=== PATIENT | female | born 2000 | race Caucasian/White ===

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

== ENCOUNTER 2019-11-19 06:22 | Inpatient (IN) | payer BC, OTHER ==
[2019-11-19] MEDS ORDERED: OXYTOCIN 10 UNIT/ML 1 ML VIAL IM PRN (06:56)
[2019-11-19] MEDS ORDERED: CARBOPROST TROMETHAMINE 250 MCG/ML 1 ML AMP IM PRN (06:56)
[2019-11-19] MEDS ORDERED: LIDOCAINE 0.5% (PF) 5 MG/ML (50 ML SDV) SQ PRN (06:56)
[2019-11-19] MEDS ORDERED: TERBUTALINE 1 MG/ML VIAL SQ PRN (06:56)
[2019-11-19] MEDS ORDERED: METHYLERGONOVINE 0.2 MG/ML 1 ML AMP IM PRN (06:56)
[2019-11-19] MEDS ORDERED: OXYTOCIN 30 UNITS/500 ML NS 30 UNIT in SALINE 1 500ML.BAG IV SCH (07:00)
[2019-11-19] MEDS: LACTATED RINGERS 1,000 ML IV SCH ×3 (07:05→13:47)
[2019-11-19 08:04] LABS: Basophils % (A) 0 %; Eosinophils # (A) 0.1 k/uL (0-0.7); Eosinophils % (A) 1 %; HCT 33.1 % (34.0-46.0); HGB 10.8 gm/dL (11.4-16.0); Hypochromasia Slight; Lymphocytes # (A) 1.8 k/uL (1.0-4.8); Lymphocytes % (A) 25 %; MCH 24.1 pg (25.0-35.0); MCHC 32.6 g/dL (31.0-37.0); MCV 73.9 fL (80.0-100.0); Mean Platelet Volume 12.4; Microcytosis Slight; Monocytes # (A) 0.4 k/uL (0-1.0); Monocytes % (A) 6 %; Neutrophils # (A) 4.7 k/uL (1.3-7.7); Neutrophils % (A) 66 %; Platelet Count 179 k/uL (150-450); Poikilocytosis Slight; RBC 4.48 m/uL (3.80-5.40); RDW 14.4 % (11.5-15.5); WBC 7.1 k/uL (3.8-10.6)
[2019-11-19 08:33] LABS: Large Platelets Present
[2019-11-19 08:34] LABS: Poikilocytosis (M) Present
[2019-11-19] MEDS ORDERED: BUTORPHANOL 1 MG/ML 1 ML VIAL IV PRN (08:39)
--- NOTE | 2019-11-19 08:44 | P.HPOB ---
History of Present Illness H&P Date: 11/19/19 Chief Complaint: 39+ weeks, elective induction The patient is a 19-year-old 2 para 1001 admitted at 39-3/7 weeks as established by an 8 week ultrasound. 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 Her cervix was felt to be favorable enough in the office. Her has been essentially uncomplicated though she was diagnosed with a circumvallate placenta and has had reassuring testing on a weekly basis since 32 weeks. Group B strep status is negative. Obstetrical history: 2 para 1001 with 1 term vaginal delivery without complications. Current statistics are listed in history of present illness. EDC of 11/23/2019 was established by an 8 week ultrasound. Laboratory workup demonstrates a blood type of O- with a negative antibody screen. Rubella status is immune. The remainder of the laboratory workup was within normal limits. One hour Glucola was within normal limits and group B strep status is negative. Gynecologic history: Unremarkable with no history of any infections to include STDs. Review of Systems Review of systems is confined to history of present illness. Past Medical History Past Medical History: No Reported History History of Any Multi-Drug Resistant Organisms: None Reported Past Surgical History: No Surgical Hx Reported Additional Past Surgical History / Comment(s): third molar removal Past Anesthesia/Blood Transfusion Reactions: No Reported Reaction Past Psychological History: No Psychological Hx Reported Smoking Status: Never smoker Past Alcohol Use History: None Reported Past Drug Use History: None Reported - Past Family History Father Family Medical History: Hypertension Medications and Allergies Home Medications Medication Instructions Recorded Confirmed Type Omeprazole [PriLOSEC] 40 mg PO DAILY 11/19/19 11/19/19 History Allergies Allergy/AdvReac Type Severity Reaction Status Date / Time adhesive tape Allergy Rash/Hives Verified 11/19/19 06:55 Exam Vital Signs Temp Pulse Resp BP Pulse Ox 11/19/19 06:54 98.1 F 85 16 127/80 98 Intake and Output 11/18/19 11/19/19 11/19/19 22:59 06:59 14:59 Other: Weight 78.925 kg In general, this is a well-developed, well-nourished white female in no acute distress. Her heart has a regular rhythm and rate without murmur. Her lungs are clear to auscultation bilaterally in all abernathy. Her abdomen is gravid, nondistended, has normal active bowel sounds, soft, nontender, and without any palpable masses aside from uterine fundus. Her extremities are without any c yanosis, clubbing, or significant edema and are nontender to palpation bilaterally. Digital cervical examination on straights discharged to be approximately 1-1/2 7 m dilated, 50% effaced, the vertex in presentation at -3 station at this time. Artificial rupture of membranes was felt to be unsafe at this station and will be delayed for a short time. Results Result Diagrams: 11/19/19 07:09 Abnormal Lab Results - Last 24 Hours (Table) 11/19/19 Range/Units 07:09 Hgb 10.8 L (11.4-16.0) gm/dL Hct 33.1 L (34.0-46.0) % MCV 73.9 L (80.0-100.0) fL MCH 24.1 L (25.0-35.0) pg Assessment and Plan (1) 39 weeks gestation of Current Visit: Yes Status: Acute Code(s): Z3A.39 - 39 WEEKS GESTATION OF SNOMED Code(s): 49646691 Plan: The patient has been admitted for elective induction of labor. She understands that there is a slightly increased risk for delivery under these circumstances. Pitocin augmentation has been started and she will have artificial rupture of membranes carried out this morning. She is a good candidate for either IV or epidural analgesia, whichever she may choose. Continue with close maternal and surveillance along with expectant management.
[2019-11-19] MEDS ORDERED: ePHEDrine SULFATE/0.9% NACL/PF 50 MG/5 ML SYRINGE IV ONE (11:57)
[2019-11-19] MEDS ORDERED: fentaNYL (PF) 50 MCG/ML 5 ML AMP ONE (11:57)
[2019-11-19] MEDS ORDERED: SODIUM CHLORIDE 0.9% 100 ML BAG ONE (11:57)
[2019-11-19] MEDS ORDERED: ROPIVACAINE 5MG/ML 20ML VIAL ONE (11:57)
[2019-11-19] MEDS ORDERED: HYDROCORTISONE 2.5% RECTAL CREAM 30 GM TUBE RECTAL PRN (19:44)
[2019-11-19] MEDS ORDERED: diphenhydrAMINE 50 MG CAP PO PRN (19:44)
[2019-11-19] MEDS ORDERED: ACETAMINOPHEN TAB 325 MG TAB PO PRN (19:44)
[2019-11-19] MEDS ORDERED: diphenhydrAMINE 50 MG/ML 1 ML VIAL IVP PRN ×2 (19:44)
[2019-11-19] MEDS ORDERED: HYDROcodone/APAP 7.5-325MG 1 EACH TAB PO PRN (19:44)
[2019-11-19] MEDS ORDERED: HYDROcodone/APAP 5-325MG 1 EACH TAB PO PRN (19:44)
[2019-11-19] MEDS ORDERED: WITCH HAZEL 1 EACH MED..PAD TOPICAL PRN (19:44)
[2019-11-19] MEDS ORDERED: ZOLPIDEM 5 MG TAB PO PRN (19:44)
[2019-11-19] MEDS ORDERED: diphenhydrAMINE 25 MG CAP PO PRN (19:44)
[2019-11-19] MEDS ORDERED: SIMETHICONE 80 MG CHEWABLE PO PRN (19:44)
[2019-11-19] MEDS ORDERED: LANOLIN CREAM 5 GM TUBE TOPICAL PRN (19:44)
[2019-11-19] MEDS ORDERED: BENZOCAINE/MENTHOL SPRAY 1 GM/SPRAY AEROSOL TOPICAL PRN (19:44)
[2019-11-19] MEDS ORDERED: OXYTOCIN 20 UNITS/1000 ML NS 1,000 ML IV SCH (19:45)
--- NOTE | 2019-11-19 19:48 | P.PROBDLV ---
Vaginal Delivery Note - . Vaginal Delivery Note: The patient is a 19-year-old 2 para 1001 admitted at 39-3/7 weeks by good dating parameters. She is admitted for elective induction of labor secondary to social circumstances. She is admitted with all signs reassuring. Her has been uncomplicated though she was known to have a circumvallate placenta and had reassuring testing weekly after 32 weeks. She additionally was Rh- and received RhoGAM at 28 weeks. Group B strep status is negative. On labor and delivery, Pitocin augmentation was started and she underwent artificial rupture of membranes for clear fluid. She made progress to approximately 3-4 synovators at which time she had an epidural catheter placed for analgesia. She then made steady progress to the active phase of labor and progressed ultimately to complete where after she pushed over the course of approximately 3-4 contractions to a normal spontaneous vaginal delivery of a viable 7 lbs. 2 oz. baby boy with Apgars of 9 at 1 minute and 9 at 5 minutes delivered in the right occiput anterior position. There was a loose nuchal cord 1 which was reduced following delivery of the infant. The placenta was delivered spontaneously, intact, and grossly normal although the circumvallate ring was noted. There was a grossly normal, centrally inserted three-vessel cord. There was a small second-degree midline perineal laceration which was repaired with a [id number] stitch of 3-0 chromic catgut and one stitch to reapproximate the skin. Estimated blood loss for the entire case was approximately 150 mL. There were no complications. All sponge, instrument, and needle counts were correct. Both mother and are resting comfortably in recovery.
[2019-11-19] MEDS: IBUPROFEN 600 MG TAB PO PRN (20:42)
[2019-11-20] MEDS ORDERED: Rhogam IMMUNE GLOBULIN 1,500 UNIT/1 ML IM ONE (00:28)
[2019-11-20] MEDS: SENNOSIDES-DOCUSATE SODIUM 1 EACH TAB PO SCH ×3 (00:43→20:15)
[2019-11-20] MEDS: IBUPROFEN 600 MG TAB PO PRN ×2 (08:19→17:11)
[2019-11-20] MEDS ORDERED: PANTOPRAZOLE 40 MG TABLET PO SCH (08:30)
--- NOTE | 2019-11-20 11:12 | P.DS ---
Providers Date of admission: 11/19/19 06:22 Expected date of discharge: 11/20/19 Attending physician: Brenden Rene Primary care physician: Stated None - Discharge Diagnosis(es) (1) 39 weeks gestation of Current Visit: Yes Status: Acute (2) Normal spontaneous vaginal delivery Current Visit: Yes Status: Acute Hospital Course: The patient is a 19-year-old 2 para 1001 admitted at 39-3/7 weeks by good dating parameters. She is admitted for an elective induction secondary to social circumstances as she is currently on spring break and is to resume school next week making delivery this week significantly more convenient. Her has been uncomplicated aside from the diagnosis of a circumvallate placenta for which she had reassuring testing weekly after 32 weeks. Group B strep status is negative. On labor and delivery, she had Pitocin augmentation started and was ultimately followed by artificial rupture of membranes for clear fluid. She had an epidural catheter placed for analgesia and made steady progress through the active phase to complete. She pushed over the course of 3 or 4 contractions to a normal spontaneous vaginal delivery of a viable 7 lbs. 2 oz. baby boy with Apgars of 9 at 1 minute and 9 at 5 minutes. Her course was unremarkable with vital signs remained stable and her temperature was afebrile throughout. She was deemed stable for discharge on day #1 and was discharged home to follow-up in the office in 6 weeks' time routinely. Discharge instructions included calling for any significantly increased bleeding or foul-smelling lochia, significantly increased fever abdominal pain, perineal complaints, breast complaints, or anything else that concerned her. She was additionally instructed to have nothing in the vagina for at least 6 weeks time to include intercourse. She understood her in structions and agrees to follow up as noted above. Discharge medications included continued vitamins as she has opted to breast-feed. She was otherwise she is [id number]-[id number] analgesic pain medications but was additionally provided with a prescription for Tylenol 3, 1-2 by mouth every 6 hours when necessary pain, #12 dispensed with no refills. Maternal blood type is O- and cord blood was sent for evaluation for the necessity of RhoGAM prior to discharge. Rubella status is immune. Procedures: #1. Pitocin induction #2. Artificial rupture of membranes #3. Epidural analgesia #4. Normal spontaneous vaginal delivery #5. Repair of perineal laceration Patient Condition at Discharge: Good Plan - Discharge Summary New Discharge Prescriptions: No Action Omeprazole [PriLOSEC] 40 mg PO DAILY Discharge Medication List Omeprazole [PriLOSEC] 40 mg PO DAILY 11/19/19 [History] Follow up Appointment(s)/Referral(s): Brenden Rene MD [STAFF PHYSICIAN] - 6 Weeks Discharge Disposition: HOME SELF-CARE
[2019-11-20 22:14] VITALS: BP 112/78; PULSE 76; RESP 12; TEMP 97.9
== END 2019-11-20 20:20 | disposition home or self-care (01) | DRG 807 ==
LOC: 4FBP 06:22
PROVIDERS: ADMIT Obstetrics & Gynecology; ATTEND Obstetrics & Gynecology
PROC: 3E033VJ Introduction of Other Hormone into Peripheral Vein, Percutaneous Approach (ICD-10-PCS; principal; 2019-11-19)
PROC: 0KQM0ZZ Repair Perineum Muscle, Open Approach (ICD-10-PCS; principal; 2019-11-19)
PROC: 10E0XZZ Delivery of Products of Conception, External Approach (ICD-10-PCS; principal; 2019-11-19)
PROC: 10907ZC Drainage of Amniotic Fluid, Therapeutic from Products of Conception, Via Natural or Artificial Opening (ICD-10-PCS; principal; 2019-11-19)
DX: O69.81X0 Labor and delivery complicated by cord around neck, without compression, not applicable or unspecified (principal); Z37.0 Single live birth; O70.1 Second degree perineal laceration during delivery; Z3A.39 39 weeks gestation of pregnancy; Z82.49 Family history of ischemic heart disease and other diseases of the circulatory system
CPT/HCPCS: 85025; 85461; 86850; 86900; 86901; 88307

== ENCOUNTER → 2021-12-18 | Outpatient (CLI) | payer BC | END | disposition home or self-care (01) | LOC: LABWHC1 10:11 | PROVIDERS: ATTEND Obstetrics & Gynecology | DX: Z36.9 Encounter for antenatal screening, unspecified (principal) | CPT/HCPCS: 36415; 82950; 86850 ==

== ENCOUNTER 2021-12-20 22:35 | Outpatient (CLI) | payer BC ==
[2021-12-21 00:57] VITALS: BP 121/60; PULSE 76; RESP 16; TEMP 98
--- NOTE | 2022-01-03 18:05 | P.MSEPDOC ---
Presenting Problems - Arrival Data Date of Arrival on Unit: 12/20/21 Time of Arrival on Unit: 22:35 Mode of Transport: Ambulatory - Complaint OB-Reason for Admission/Chief Complaint: Pain Comment: presents to [facility] after going to "[facility] ER" for rt sided abd pain. ponts rt groin up to hip area. is constant pain. sharp. abd remains. soft. pain worse with any walking. pain has been going on about 24 hours Medical History - Information : 3 Para: 2 Term: 2 : 0 Abortions: Spontaneous or Elective: 0 Number of Living Children: 2 - Gestational Age Gestational Age by DANIKA (wks/days): 30 Weeks and 4 Days - History Comment: states failed first glucose test. second not scheduled yet Review of Systems - Review of Systems Constitutional: No problems Breast: No problems ENT: No problems Cardiovascular: No problems Respiratory: No problems Gastrointestinal: No problems Genitourinary: No problems Musculoskeletal: No problems Neurological: No problems Skin: No problems Vital Signs - Temperature Temperature: 98.0 F Temperature Source: Oral - Pulse Right Pulse Rate: 76 Pulse Assessment Method: Automatic Cuff - Respirations Respiratory Rate: 16 Oxygen Delivery Method: Room Air O2 Sat by Pulse Oximetry: 97 - Blood Pressure Right Arm Blood Pressure: 121/60 Blood Pressure Mean: 80 Blood Pressure Source: Automatic Cuff Medical Screen Scoring - Uterine Contractions Frequency From (mins): 0 Frequency To (mins): 0 Duration From (seconds): 0 Duration To (seconds): 0 - Assessment - Baby A Baseline FHR: 120 Heart Rate - NICHD Category: Category I (Normal) NST: Reactive Physician Notification - Physician Notified Physician Notified Date: 12/20/21 Physician Notified Time: 23:15 Physician: Dr Bergman New Order Received: Yes - Notification Comment Comment: Discussed pts presentation, Pain, vitals, complaints, reactive NST with Dr Bergman. Order for discharge received with pt to remain off work tomorrowe for rest and to call Dr Rene tomorrow for an appt next week. Advised to try using a pregnancysupport belt, over the counter tylenol, warm baths and compresses alternating with ice packs for suspected rt sided round lig pain. Pt advised of all instructions. denies any questions. Maternal Triage Index - Maternal Triage Index Presenting for scheduled procedure w/no complaint: No - Stat/Priority 1 Stat Priority 1: No - Urgent/Priority 2 Urgent Priority 2: No - Prompt/Priority 3 Prompt Priority 3: No - Non-Urgent/Priority 4 Non-Urgent Priority 4: Yes Criteria Met for Priority 4: rt groin pain radiates to hip Disposition - Disposition OB Disposition: Discharge to home Discharge Date: 12/20/21 Discharge Time: 23:20 I agree with the RN Medical Screening Exam: Yes Case reviewed; plan agreed upon as documented in EMR&OBIX.: Yes Diagnosis: RELATED CONDITIONS, UNSPECIFIED, THIRD TRIMESTER
== END 2021-12-20 23:15 | disposition home or self-care (01) ==
LOC: FBPOP 22:35
PROVIDERS: ATTEND Obstetrics & Gynecology Obstetrics
DX: O26.893 Other specified pregnancy related conditions, third trimester (principal); R10.9 Unspecified abdominal pain; Z3A.30 30 weeks gestation of pregnancy; Z91.048 Other nonmedicinal substance allergy status
CPT/HCPCS: 59025; 99213

== ENCOUNTER 2022-02-23 06:15 | Inpatient (IN) | payer BC ==
[2022-02-23] MEDS ORDERED: CARBOPROST TROMETHAMINE 250 MCG/ML 1 ML AMP IM PRN (07:24)
[2022-02-23] MEDS ORDERED: TERBUTALINE 1 MG/ML VIAL SQ PRN (07:24)
[2022-02-23] MEDS ORDERED: OXYTOCIN 10 UNIT/ML 1 ML VIAL IM PRN (07:24)
[2022-02-23] MEDS ORDERED: LIDOCAINE 0.5% (PF) 5 MG/ML (50 ML SDV) SQ PRN (07:24)
[2022-02-23] MEDS ORDERED: PENICILLIN G POTASSIUM 5,000,000 UNIT in DEXTROSE 5% IN WATER 100 ML IVPB STA ×2 (07:24)
[2022-02-23] MEDS ORDERED: METHYLERGONOVINE 0.2 MG/ML 1 ML AMP IM PRN (07:24)
[2022-02-23] MEDS ORDERED: OXYTOCIN 30 UNITS/500 ML NS 30 UNIT in SALINE 1 500ML.BAG IV SCH ×2 (07:30→14:30)
[2022-02-23] MEDS: LACTATED RINGERS 1,000 ML IV SCH ×2 (07:35→10:58)
[2022-02-23 08:02] LABS: Anisocytosis Slight; Basophils % (A) 1 %; Eosinophils # (A) 0.2 k/uL (0-0.7); Eosinophils % (A) 3 %; HGB 10.6 gm/dL (11.4-16.0); Hypochromasia Moderate; Lymphocytes # (A) 2.1 k/uL (1.0-4.8); Lymphocytes % (A) 24 %; MCHC 32.1 g/dL (31.0-37.0); MCV 74.8 fL (80.0-100.0); Mean Platelet Volume 12.8; Microcytosis Slight; Monocytes # (A) 0.5 k/uL (0-1.0); Monocytes % (A) 5 %; Neutrophils # (A) 5.8 k/uL (1.3-7.7); Neutrophils % (A) 66 %; Platelet Count 211 k/uL (150-450); Poikilocytosis Slight; RBC 4.41 m/uL (3.80-5.40); RDW 16.1 % (11.5-15.5); WBC 8.8 k/uL (3.8-10.6)
[2022-02-23 08:17] LABS: Glucose,Whole Blood 82 mg/dL (70-110)
[2022-02-23 08:41] LABS: Large Platelets Present
[2022-02-23] MEDS ORDERED: BUTORPHANOL 1 MG/ML 1 ML VIAL IV PRN (09:02)
--- NOTE | 2022-02-23 09:08 | P.HPOB ---
History of Present Illness H&P Date: 02/23/22 Chief Complaint: 39-5/7 weeks, elective induction The patient is a 22-year-old 3 para 2001 admitted at 39-5/7 weeks as established by seven-week ultrasound. She is admitted for elective induction of labor with a very favorable cervix and all signs reassuring, category 1 heart rate tracing. Her has been complicated by gestational diabetes which was presumptive in nature as she declined a three-hour glucose tolerance test. A sugars were normal throughout with diet alone and testing has been reassuring weekly basis and 32 weeks. She otherwise is known to be Rh- and received RhoGAM at 28 weeks. Group B strep status is positive. Obstetrical history: 3 para 2001 with 2 term vaginal deliveries without complications. Current statistics are listed in history present illness. EDC of 02/25/2022 was established by seven-week ultrasound. Laboratory workup demonstrates a blood type of O- with a negative antibody screen. Rubella status is immune. The remainder of the laboratory workup was within normal limits. One hour Glucola was somewhat elevated and the patient declined three-hour glucose tolerance test in favor of being treated is a diabetic. Group B strep status is positive. Leather Splitter history: Uncomplicated with no history of infections to include STDs. Review of Systems Review of systems is confined to history of present illness. Past Medical History Past Medical History: Asthma, GERD/Reflux History of Any Multi-Drug Resistant Organisms: None Reported Past Surgical History: No Surgical Hx Reported Additional Past Surgical History / Comment(s): third molar removal Past Anesthesia/Blood Transfusion Reactions: No Reported Reaction Past Psychological History: Anxiety, Depression Smoking Status: Never smoker Past Alcohol Use History: None Reported Past Drug Use History: None Reported - Past Family History Father Family Medical History: Hypertension Medications and Allergies Home Medications Medication Instructions Recorded Confirmed Type Famotidine [Pepcid] 20 mg PO BID 02/23/22 02/23/22 History Omeprazole 40 mg PO DAILY 02/23/22 02/23/22 History Allergies Allergy/AdvReac Type Severity Reaction Status Date / Time adhesive tape Allergy Rash/Hives Verified 02/23/22 07:21 Exam Vital Signs Temp Pulse Resp BP Pulse Ox 02/23/22 07:21 98.1 F 74 18 123/73 98 Intake and Output 02/22/22 02/23/22 02/23/22 22:59 06:59 14:59 Other: Weight 87.997 kg In general, this is a well-developed, mildly obese white female in no acute distress. Her heart has a regular rhythm and rate without murmur. Her lungs are clear to auscultation bilaterally in all abernathy. Her abdomen is gravid, nondistended, has normal active bowel sounds, soft, nontender, and without any palpable masses aside from uterine fundus. Her extremities are without any cyanosis, clubbing, or significant edema and are nontender to palpation bilaterally. Digital cervical examination demonstrates her cervix to be 3-4 cm dilated, 60% effaced, the vertex in presentation at -2-3 station. Artificial rupture of membranes is carried out demonstrating clear fluid. Results Result Diagrams: 02/23/22 07:35 Abnormal Lab Results - Last 24 Hours (Table) 02/23/22 Range/Units 07:35 Hgb 10.6 L (11.4-16.0) gm/dL Hct 33.0 L (34.0-46.0) % MCV 74.8 L (80.0-100.0) fL MCH 24.0 L (25.0-35.0) pg RDW 16.1 H (11.5-15.5) % Assessment and Plan (1) Group B streptococcal infection in Current Visit: Yes Status: Acute Code(s): O98.819 - OTH MATERNAL INFEC/PARASTC DISEASES COMP PREG, UNSP TRI; B95.1 - STREPTOCOCCUS, GROUP B, CAUSING DISEASES [facility] Code(s): 417134141 (2) 39 weeks gestation of Current Visit: Yes Status: Acute Code(s): Z3A.39 - 39 WEEKS GESTATION OF SNOMED Code(s): 51367364 Plan: The patient is admitted for elective induction of labor. Pitocin augmentation h as been started and she has had her first dose of antibiotics for group B strep prophylaxis. Artificial rupture of membranes has been carried out. She will have close maternal and surveillance and expectant management will be practiced. She is a good candidate for either IV or epidural analgesia, whichever she may choose.
[2022-02-23 10:44] LABS: Glucose,Whole Blood 71 mg/dL (70-110)
[2022-02-23] MEDS ORDERED: SODIUM CHLORIDE 0.9% 100 ML BAG ONE (10:47)
[2022-02-23] MEDS ORDERED: ROPIVACAINE 5MG/ML 20ML VIAL ONE (10:47)
[2022-02-23] MEDS ORDERED: fentaNYL (PF) 50 MCG/ML 5 ML AMP ONE (10:47)
[2022-02-23] MEDS: PENICILLIN G POTASSIUM 2,500,000 UNIT in DEXTROSE 5% IN WATER 100 ML IVPB SCH ×4 (11:49→20:47)
[2022-02-23] MEDS ORDERED: ZOLPIDEM 5 MG TAB PO PRN (14:19)
[2022-02-23] MEDS ORDERED: HYDROcodone/APAP 7.5-325MG 1 EACH TAB PO PRN (14:19)
[2022-02-23] MEDS ORDERED: HYDROcodone/APAP 5-325MG 1 EACH TAB PO PRN (14:19)
[2022-02-23] MEDS ORDERED: SIMETHICONE 80 MG CHEWABLE PO PRN (14:19)
[2022-02-23] MEDS ORDERED: diphenhydrAMINE 25 MG CAP PO PRN (14:19)
[2022-02-23] MEDS ORDERED: diphenhydrAMINE 50 MG CAP PO PRN (14:19)
[2022-02-23] MEDS ORDERED: diphenhydrAMINE 50 MG/ML 1 ML VIAL IVP PRN ×2 (14:19)
[2022-02-23] MEDS ORDERED: HYDROCORTISONE 2.5% RECTAL CREAM 30 GM TUBE RECTAL PRN (14:19)
[2022-02-23] MEDS ORDERED: BENZOCAINE/MENTHOL SPRAY 1 GM/SPRAY AEROSOL TOPICAL PRN (14:19)
[2022-02-23] MEDS ORDERED: LANOLIN CREAM 5 GM TUBE TOPICAL PRN (14:19)
--- NOTE | 2022-02-23 14:23 | P.PROBDLV ---
Vaginal Delivery Note - . Vaginal Delivery Note: The patient is a 22-year-old 3 para 2001 admitted at 39-5/7 weeks by good dating parameters perches admitted for an elective induction of labor with a category 1 heart rate tracing, all signs reassuring, and a favorable cervix. Her has been complicated only by presumptive gestational diabetes as she declined a three-hour glucose tolerance test after failing the 1 hour. testing was reassuring and blood sugars were normal throughout. She also is known to be Rh- and received RhoGAM at 28 weeks. Group B strep status is positive. On labor and delivery, she had antibiotic prophylaxis started as well as Pitocin augmentation. She underwent artificial rupture of membranes for clear fluid she made progress through the latent phase of labor at which time she had an epidural catheter placed for analgesia. She then progressed fairly quickly through the active phase of labor to complete and thereafter pushed over the course of 1 contraction to a normal spontaneous vaginal delivery of a viable 8 lbs. 13 oz. baby boy with Apgars of 9 at 1 minute and 10 at 5 minutes delivered in the right occiput anterior position. There was a loose nuchal cord 1 which was reduced prior to delivering the infant. The placenta was delivered spontaneously, intact, and grossly normal with a grossly normal three-vessel cord inserted approximate 4 cm from the margin of the placental disc. There were no lacerations of the perineum, vagina, or cervix. Assessment a blood loss for the case is approximately 100 mL. There were no complications. Both mother and are resting comfortably in recovery.
[2022-02-23] MEDS: IBUPROFEN 600 MG TAB PO PRN (14:45)
[2022-02-23] MEDS ORDERED: Rhogam IMMUNE GLOBULIN 1,500 UNIT/1 ML IM ONE (18:50)
[2022-02-23] MEDS: ACETAMINOPHEN TAB 325 MG TAB PO PRN (20:04)
[2022-02-23] MEDS: SENNOSIDES-DOCUSATE SODIUM 1 EACH TAB PO SCH (20:05)
[2022-02-24] MEDS: IBUPROFEN 600 MG TAB PO PRN ×2 (04:57→11:49)
[2022-02-24 07:58] LABS: Anisocytosis Slight; Basophils % (A) 0 %; Eosinophils # (A) 0.3 k/uL (0-0.7); Eosinophils % (A) 4 %; HCT 30.9 % (34.0-46.0); HGB 9.8 gm/dL (11.4-16.0); Hypochromasia Moderate; Lymphocytes # (A) 1.8 k/uL (1.0-4.8); Lymphocytes % (A) 20 %; MCH 23.7 pg (25.0-35.0); MCHC 31.7 g/dL (31.0-37.0); MCV 74.6 fL (80.0-100.0); Mean Platelet Volume 13.3; Microcytosis Slight; Monocytes # (A) 0.5 k/uL (0-1.0); Monocytes % (A) 5 %; Neutrophils # (A) 5.9 k/uL (1.3-7.7); Neutrophils % (A) 67 %; Platelet Count 152 k/uL (150-450); Poikilocytosis Slight; RBC 4.15 m/uL (3.80-5.40); RDW 16.3 % (11.5-15.5); WBC 8.8 k/uL (3.8-10.6)
[2022-02-24] MEDS: SENNOSIDES-DOCUSATE SODIUM 1 EACH TAB PO SCH (08:46)
[2022-02-24] MEDS: ACETAMINOPHEN TAB 325 MG TAB PO PRN (08:46)
[2022-02-24 09:41] LABS: Large Platelets Present
--- NOTE | 2022-02-24 11:27 | P.DS ---
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 She is admitted for elective induction with all signs reassuring. Her pregnancies, located by presumptive gestational diabetes as she declined a three-hour glucose tolerance test. blood sugars were normal and weekly nonstress testing was normal since 32 weeks. She is also Rh- and received RhoGAM at 28 weeks. Group B strep status was positive. On labor and delivery, she had antibiotic prophylaxis started as well as Pitocin augmentation. She underwent artificial rupture of membranes. She made progress to the active phase of labor which time an epidural catheter was placed patient progressed relatively quickly through the active phase to complete and pushed over the course of 1 contraction to a normal spontaneous vaginal delivery of a viable 8 lbs. 13 oz. baby boy with Apgars of 9 at 1 minute and 10 at 5 minutes. Her course was unremarkable vital signs being stable and her temperature was afebrile throughout. She was deemed stable for discharge on day #1 and was discharged home to follow-up in the office in 6 weeks' time routinely. Discharge instructions included calling for any significantly increased bleeding or foul-smelling lochia, significantly increased fever abdominal pain, perineal complaints, breast complaints, or anything else that concerned her. She is additionally instructed to have nothing in the vagina for at least 6 weeks time to include intercourse. She understood her instructions and agrees to follow up as noted above. Discharge medications included continue vitamins and cqza-nki-uumjsrr analgesic pain medications. Maternal blood type is O- and cord blood was sent for evaluation for the necessity of RhoGAM prior to discharge. Rubella status is immune. Procedures: #1. Antibiotic prophylaxis #2. Pitocin induction of 3. Artificial rupture of membranes #4. Epidural analgesia #5. Normal spontaneous vaginal delivery Patient Condition at Discharge: Stable Plan - Discharge Summary New Discharge Prescriptions: No Action Famotidine [Pepcid] 20 mg PO BID Omeprazole 40 mg PO DAILY Discharge Medication List Famotidine [Pepcid] 20 mg PO BID 02/23/22 [History] Omeprazole 40 mg PO DAILY 02/23/22 [History] Follow up Appointment(s)/Referral(s): Brenden Rene MD [STAFF PHYSICIAN] - 6 Weeks Discharge Disposition: HOME SELF-CARE
[2022-02-24 13:32] VITALS: BP 99/60; PULSE 85; RESP 17; TEMP 98.3
== END 2022-02-24 15:15 | disposition home or self-care (01) | DRG 807 ==
LOC: 4FBP 06:29
PROVIDERS: ADMIT Obstetrics & Gynecology; ATTEND Obstetrics & Gynecology
PROC: 10E0XZZ Delivery of Products of Conception, External Approach (ICD-10-PCS; principal; 2022-02-23)
PROC: 10907ZC Drainage of Amniotic Fluid, Therapeutic from Products of Conception, Via Natural or Artificial Opening (ICD-10-PCS; 2022-02-23)
PROC: 3E033VJ Introduction of Other Hormone into Peripheral Vein, Percutaneous Approach (ICD-10-PCS; 2022-02-23)
DX: O24.420 Gestational diabetes mellitus in childbirth, diet controlled (principal); O99.824 Streptococcus B carrier state complicating childbirth; O69.81X0 Labor and delivery complicated by cord around neck, without compression, not applicable or unspecified; O99.62 Diseases of the digestive system complicating childbirth; F41.9 Anxiety disorder, unspecified; J45.909 Unspecified asthma, uncomplicated; F32.A Depression, unspecified; K21.9 Gastro-esophageal reflux disease without esophagitis; Z37.0 Single live birth; O99.344 Other mental disorders complicating childbirth; O26.893 Other specified pregnancy related conditions, third trimester; O99.52 Diseases of the respiratory system complicating childbirth; Z3A.39 39 weeks gestation of pregnancy; Z82.49 Family history of ischemic heart disease and other diseases of the circulatory system; Z67.41 Type O blood, Rh negative; Z91.048 Other nonmedicinal substance allergy status
CPT/HCPCS: 85025; 85461; 86850; 86900; 86901

== ENCOUNTER 2023-03-22 09:15 | Emergency (ER) | payer BC ==
[2023-03-22 09:18] VITALS: BP 133/76; PULSE 57; RESP 18; TEMP 98.2
[2023-03-22] MEDS ORDERED: FAMOTIDINE 20 MG TAB PO STA (09:24)
[2023-03-22] MEDS ORDERED: predniSONE 50 MG TAB PO STA (09:24)
--- NOTE | 2023-03-22 09:29 | ED ---
General Adult HPI - General Chief complaint: Skin/Abscess/Foreign Body Stated complaint: rash Time Seen by Provider: 03/22/23 09:16 Source: patient, RN notes reviewed, old records reviewed Mode of arrival: ambulatory - History of Present Illness Initial comments: 23-year-old female presenting with rash which she noticed upon waking this morning at 831 hour prior to arrival. Rash is predominantly on her bilateral upper extremities. Patient had taken 50 mg of Benadryl prior to arrival. No vomiting. No known exposure. No new foods. Patient is otherwise healthy. - Related Data Home Medications Medication Instructions Recorded Confirmed Famotidine [Pepcid] 20 mg PO BID 02/23/22 02/23/22 Omeprazole 40 mg PO DAILY 02/23/22 02/23/22 Previous Rx's Medication Instructions Recorded Famotidine [Pepcid] 20 mg PO DAILY #7 tablet 03/22/23 diphenhydrAMINE [Benadryl] 25 mg PO TID PRN #21 capsule 03/22/23 methylPREDNISolone Dose Pack 4 mg PO DIRECTED #21 packet 03/22/23 [Medrol Dose Pack] Allergies Allergy/AdvReac Type Severity Reaction Status Date / Time adhesive tape Allergy Rash/Hives Verified 03/22/23 09:18 Review of Systems ROS Statement: Those systems with pertinent positive or pertinent negative responses have been documented in the HPI. ROS Other: All systems not noted in ROS Statement are negative. Past Medical History Past Medical History: Asthma, GERD/Reflux History of Any Multi-Drug Resistant Organisms: None Reported Past Surgical History: No Surgical Hx Reported Additional Past Surgical History / Comment(s): third molar removal Past Anesthesia/Blood Transfusion Reactions: No Reported Reaction Past Psychological History: Anxiety, Depression Smoking Status: Never smoker Past Alcohol Use History: None Reported Past Drug Use History: None Reported - Past Family History Father Family Medical History: Hypertension General Exam General appearance: alert, in no apparent distress Head exam: Present: atraumatic, normocephalic Eye exam: Present: normal appearance, PERRL ENT exam: Present: normal exam, normal oropharynx Neck exam: Present: normal inspection. Absent: tenderness Respiratory exam: Present: normal lung sounds bilaterally. Absent: respiratory distress, wheezes Cardiovascular Exam: Present: regular rate, normal rhythm GI/Abdominal exam: Present: soft. Absent: distended Neurological exam: Present: alert, oriented X3, CN II-XII intact. Absent: motor sensory deficit Psychiatric exam: Present: normal affect, normal mood Skin exam: Present: warm, dry, urticaria (Bilateral upper extremities) Course Vital Signs 03/22/23 09:16 Temperature 98.2 F Pulse Rate 57 L Respiratory 18 Rate Blood Pressure 133/76 O2 Sat by Pulse 99 Oximetry Medical Decision Making - Medical Decision Making Was pt. sent in by a medical professional or institution (ABHAY Mitchell, SHOOK MACHINE OPERATOR, urgent care, hospital, or [place] health care facility...) When possible be specific @ -No Did you speak to anyone other than the patient for history (EMS, parent, family, police, friend...)? What history was obtained from this source @ -No Did you review nursing and triage notes (agree or disagree)? Why? @ -I reviewed and agree with nursing and triage notes Were old charts reviewed (outside hosp., previous admission, EMS record, old EKG, old radiological studies, urgent care reports/EKG's, [place] health care facility records)? Report findings @ -No old charts were reviewed Differential Diagnosis (chest pain, altered mental status, abdominal pain women, abdominal pain men, vaginal bleeding, weakness, fever, dyspnea, syncope, headache, dizziness, GI bleed, back pain, seizure, CVA, palpatations, mental health, musculoskeletal)? @ -ALLERGIC reaction, urticaria, contact dermatitis EKG interpreted by me (3pts min.). @ -As above X-rays interpreted by me (1pt min.). @ -None done CT interpreted by me (1pt min.). @ -None done U/S interpreted by me (1pt. min.). @ -None done What testing was considered but not performed or refused? (CT, X-rays, U/S, labs)? Why? @ -None What meds were considered but not given or refused? Why? @ -None Did you discuss the management of the patient with other professionals (professionals i.e. ABHAY Mitchell, SHOOK MACHINE OPERATOR, lab, RT, psych nurse, forensic social worker, dinkey engineer, teacher, staff air defense officer, case briefer)? Give summary @ -No Was smoking cessation discussed for >3mins.? @ -No Was critical care preformed (if so, how long)? @ -No Were there social determinants of health that impacted care today? How? (Homelessness, low income, unemployed, alcoholism, drug addiction, transportation, low edu. Level, literacy, decrease access to med. care, [facility], rehab)? @ -No Was there de-escalation of care discussed even if they declined (Discuss DNR or withdrawal of care, Hospice)? DNR status @ -No What co-morbidities impacted this encounter? (DM, HTN, Smoking, COPD, CAD, Cancer, CVA, ARF, Chemo, Hep., AIDS, mental health diagnosis, sleep apnea, morbid obesity)? @ -None Was patient admitted / discharged? Hospital course, mention meds given and route, prescriptions, significant lab abnormalities, going to OR and other pertinent info. @ -[23-year-old female presenting with urticarial rash on her bilateral arms. Patient well-appearing with stable vitals. There is no tongue or pharyngeal swelling. No vomiting. Patient is unable to identify any new exposure. Took Benadryl prior to arrival, given Pepcid and prednisone in the emergency department, observed for one hour. Undiagnosed new problem with uncertain prognosis? @ -No Drug Therapy requiring intensive monitoring for toxicity (Heparin, Nitro, Insulin, Cardizem)? @ -No Were any procedures done? @ -No Diagnosis/symptom? @ -[Urticaria Acute, or Chronic, or Acute on Chronic? @ -[Acute Uncomplicated (without systemic symptoms) or Complicated (systemic symptoms)? @ -default Side effects of treatment? @ -No Exacerbation, Progression, or Severe Exacerbation? @ -No Poses a threat to life or bodily function? How? (Chest pain, [place], [place], pneumonia, PE, COPD, DKA, ARF, appy, cholecystitis, CVA, Diverticulitis, Homicidal, Suicidal, threat to staff... and all critical care pts) @ -Low risk at this time Disposition Clinical Impression: Urticaria Disposition: HOME SELF-CARE Condition: Good Instructions (If sedation given, give patient instructions): Urticaria (ED) Prescriptions: diphenhydrAMINE [Benadryl] 25 mg PO TID PRN #21 capsule PRN Reason: Allergic Reaction methylPREDNISolone Dose Pack [Medrol Dose Pack] 4 mg PO DIRECTED #21 packet Famotidine [Pepcid] 20 mg PO DAILY #7 tablet Is patient prescribed a controlled substance at d/c from ED?: No Referrals: None,Stated [Primary Care Provider] - 1-2 days Time of Disposition: 10:16
== END 2023-03-22 10:15 | disposition home or self-care (01) ==
LOC: EC 09:15
DX: L50.9 Urticaria, unspecified (principal); J45.909 Unspecified asthma, uncomplicated; K21.9 Gastro-esophageal reflux disease without esophagitis; Z79.899 Other long term (current) drug therapy; Z91.048 Other nonmedicinal substance allergy status
CPT/HCPCS: 99282; J7512

== ENCOUNTER 2023-10-25 14:36 | Emergency (ER) | payer BC, OTHER ==
--- NOTE | 2023-10-25 14:57 | ED ---
Female Urogenital HPI - General Source: patient, RN notes reviewed Mode of arrival: ambulatory Limitations: no limitations <Shanti Sharp - Last Filed: 10/25/23 14:55> - General Source: patient, RN notes reviewed Mode of arrival: ambulatory Limitations: no limitations <Cindy Polo - Last Filed: 10/25/23 23:07> - General Chief complaint: Vaginal Bleeding Stated complaint: 7wks preg-abd pain,vag bleeding Time Seen by Provider: 10/25/23 14:55 - History of Present Illness Initial comments: This is a 23 year old female who presents to the emergency department for vaginal bleeding in . Patient is 7 weeks and reports associated pelvic pain. Sx started this morning. (Shanti Sharp) Patient is a 23-year-old female presenting to the ER with a chief complaint of abdominal cramping and vaginal bleeding. She states that she is about 7 weeks . Patient states she started having abdominal cramping and light vaginal bleeding this morning. She reports her bleeding to be not even filling one pad per day. Patient follows up with Dr. Rene. (Cindy Polo) - Related Data Home Medications Medication Instructions Recorded Confirmed Famotidine [Pepcid] 20 mg PO BID 02/23/22 02/23/22 Omeprazole 40 mg PO DAILY 02/23/22 02/23/22 Previous Rx's Medication Instructions Recorded Famotidine [Pepcid] 20 mg PO DAILY #7 tablet 03/22/23 diphenhydrAMINE [Benadryl] 25 mg PO TID PRN #21 capsule 03/22/23 methylPREDNISolone Dose Pack 4 mg PO DIRECTED #21 packet 03/22/23 [Medrol Dose Pack] Allergies Allergy/AdvReac Type Severity Reaction Status Date / Time adhesive tape Allergy Rash/Hives Verified 10/25/23 14:52 Review of Systems ROS Other: All systems not noted in ROS Statement are negative. <Shanti Sharp - Last Filed: 10/25/23 14:55> ROS Other: All systems not noted in ROS Statement are negative. <Cindy Polo - Last Filed: 10/25/23 23:07> ROS Statement: Those systems with pertinent positive or pertinent negative responses have been documented in the HPI. Past Medical History Past Medical History: Asthma, GERD/Reflux History of Any Multi-Drug Resistant Organisms: None Reported Past Surgical History: No Surgical Hx Reported Additional Past Surgical History / Comment(s): third molar removal Past Anesthesia/Blood Transfusion Reactions: No Reported Reaction Past Psychological History: Anxiety, Depression Smoking Status: Never smoker Past Alcohol Use History: None Reported Past Drug Use History: None Reported - Past Family History Father Family Medical History: Hypertension <Shanti Sharp - Last Filed: 10/25/23 14:55> General Exam Limitations: no limitations <Shanti Sharp - Last Filed: 10/25/23 14:55> General appearance: alert, in no apparent distress Head exam: Present: atraumatic, normocephalic, normal inspection Eye exam: Present: normal appearance, PERRL, EOMI. Absent: scleral icterus, conjunctival injection, periorbital swelling Respiratory exam: Present: normal lung sounds bilaterally. Absent: respiratory distress, wheezes, rales, rhonchi, stridor Cardiovascular Exam: Present: regular rate, normal rhythm, normal heart sounds. Absent: systolic murmur, diastolic murmur, rubs, gallop, clicks GI/Abdominal exam: Present: soft, normal bowel sounds. Absent: distended, tenderness, guarding, rebound, rigid Neurological exam: Present: alert, oriented X3, CN II-XII intact Psychiatric exam: Present: normal affect, normal mood Skin exam: Present: warm, dry, intact, normal color. Absent: rash <Cindy Polo - Last Filed: 10/25/23 23:07> - General Exam Comments Initial Comments: Visual Physical Exam Vital signs reviewed General: Well-appearing, nontoxic, no acute distress. Head: Normocephalic, atraumatic Eyes: PERRLA, EOMI ENT: Airway patent Chest: Nonlabored breathing Skin: No visual rash, normal skin tone Neuro: Alert and oriented 3 Musculoskeletal: No gross abnormalities (Shanti Sharp) Course Vital Signs 10/25/23 14:49 Temperature 98.7 F Pulse Rate 106 H Respiratory 18 Rate Blood Pressure 154/80 O2 Sat by Pulse 100 Oximetry Medical Decision Making <Shanti Sharp - Last Filed: 10/25/23 14:55> - Lab Data Result diagrams: 10/25/23 16:34 10/25/23 16:34 - Radiology Data Radiology results: report reviewed, image reviewed <Cindy Polo - Last Filed: 10/25/23 23:07> - Medical Decision Making I performed the QuickNote portion of this chart. Signed Shanti Sharp PA-C. (Shanti Sharp) Was pt. sent in by a medical professional or institution (, [facility], CALL SPECIALIST, urgent ca re, hospital, or halfway...) When possible be specific @ -No Did you speak to anyone other than the patient for history (EMS, parent, family, police, friend...)? What history was obtained from this source @ -No Did you review nursing and triage notes (agree or disagree)? Why? @ -I reviewed and agree with nursing and triage notes Were old charts reviewed (outside hosp., previous admission, EMS record, old EKG, old radiological studies, urgent care reports/EKG's, halfway records)? Report findings @ -No old charts were reviewed Differential Diagnosis (chest pain, altered mental status, abdominal pain women, abdominal pain men, vaginal bleeding, weakness, fever, dyspnea, syncope, headache, dizziness, GI bleed, back pain, seizure, CVA, palpatations, mental health, musculoskeletal)? @ -Differential Vaginal Bleeding: Spontaneous , threatened , molar , ectopic , bloody show, incompetent cervix, abruptioplacenta, placenta previa, uterine rup ture, dysfunctional uterine bleeding, hemorrhage, uterine fibroids, this is not meant to be an all-inclusive list. EKG interpreted by me (3pts min.). @ -None X-rays interpreted by me (1pt min.). @ -None done CT interpreted by me (1pt min.). @ -None done U/S interpreted by me (1pt. min.). @ -Ultrasound interpreted by me shows a small anechoic interuterine cystic structure without evidence of yolk sac or pole. Gestational age 5 weeks by gestational sac measurment. What testing was considered but not performed or refused? (CT, X-rays, U/S, labs)? Why? @ -None What meds were considered but not given or refused? Why? @ -None Did you discuss the management of the patient with other professionals (professionals i.e. , PA, CALL SPECIALIST, lab, RT, psych nurse, social worker aide, fitness professional, teacher, juvenile officer, comp field case manager)? Give summary @ -No Was smoking cessation discussed for >3mins.? @ -No Was critical care preformed (if so, how long)? @ -No Were there social determinants of health that impacted care today? How? (Homelessness, low income, unemployed, alcoholism, drug addiction, transportation, low edu. Level, literacy, decrease access to med. care, penitentiary, rehab)? @ -No Was there de-escalation of care discussed even if they declined (Discuss DNR or withdrawal of care, Hospice)? DNR status @ -No What co-morbidities impacted this encounter? (DM, HTN, Smoking, COPD, CAD, Cancer, CVA, ARF, Chemo, Hep., AIDS, mental health diagnosis, sleep apnea, morbid obesity)? @ - Was patient admitted / discharged? Hospital course, mention meds given and route, prescriptions, significant lab abnormalities, going to OR and other pertinent info. @ -Discharge. Patient is a 23-year-old female presented to ER with a chief complaint of abdominal cramping and vaginal bleeding. Patient is roughly 7 weeks , per patient. History and physical exam were completed. Vitals stable. Patient in no signs of acute distress. Patient refused pelvic exam. Labs obtained in the ER unremarkable. Serum hCG 7881. Hemoglobin stable at 14.6. Ultrasound performed due to abdominal cramping and bleeding in is significant for gestational age by gestational sac measurement is 5 weeks 0 days. Thers is a small anechoic intrauterine cystic structure without evidence of yolk sac or pole. Ultrasound findings may be indicative of early . I discussed imaging and lab results with patient. Advised her to follow-up with Dr. Rene in the next 7 to 10 days for repeat ultrasound and blood work. Due to patient's blood type being O- patient received RhoGAM. Return parameters were discussed. Patient be discharged in stable condition with follow-up to Dr. Rene. Patient expressed understanding and agreement with care plan. Undiagnosed new problem with uncertain prognosis? @ -No Drug Therapy requiring intensive monitoring for toxicity (Heparin, Nitro, Insulin, Cardizem)? @ -No Were any procedures done? @ -No Diagnosis/symptom? @ -/vaginal bleeding/Rh- blood type Acute, or Chronic, or Acute on Chronic? @ -Acute Uncomplicated (without systemic symptoms) or Complicated (systemic symptoms)? @ -Uncomplicated Side effects of treatment? @ -No Exacerbation, Progression, or Severe Exacerbation? @ -No Poses a threat to life or bodily function? How? (Chest pain, [place], [place], pneumonia, PE, COPD, DKA, ARF, appy, cholecystitis, CVA, Diverticulitis, Homicidal, Suicidal, threat to staff... and all critical care pts) @ -Unlikely (Cindy Polo) - Lab Data Lab Results 10/25/23 10/25/23 10/25/23 Range/Units 14:57 16:34 16:34 WBC 8.9 (3.8-10.6) k/uL RBC 4.95 (3.80-5.40) m/uL Hgb 14.6 (11.4-16.0) gm/dL Hct 43.3 (34.0-46.0) % MCV 87.4 (80.0-100.0) fL MCH 29.5 (25.0-35.0) pg MCHC 33.8 (31.0-37.0) g/dL RDW 12.7 (11.5-15.5) % Plt Count 182 (150-450) k/uL MPV 9.1 Neutrophils % 67 % Lymphocytes % 26 % Monocytes % 4 % Eosinophils % 1 % Basophils % 1 % Neutrophils # 6.0 (1.3-7.7) k/uL Lymphocytes # 2.3 (1.0-4.8) k/uL Monocytes # 0.4 (0-1.0) k/uL Eosinophils # 0.1 (0-0.7) k/uL Basophils # 0.1 (0-0.2) k/uL Sodium 139 (137-145) mmol/L Potassium 3.8 (3.5-5.1) mmol/L Chloride 108 H (98-107) mmol/L Carbon Dioxide 21 L (22-30) mmol/L Anion Gap 10 mmol/L BUN 10 (7-17) mg/dL Creatinine 0.77 (0.52-1.04) mg/dL Est GFR (CKD-EPI)AfAm >90 (>60 ml/min/1.73 sqM) Est GFR (CKD-EPI)NonAf >90 (>60 ml/min/1.73 sqM) Glucose 93 (74-99) mg/dL Calcium 9.8 (8.4-10.2) mg/dL Total Bilirubin 0.5 (0.2-1.3) mg/dL AST 23 (14-36) U/L ALT 16 (4-34) U/L Alkaline Phosphatase 77 (38-126) U/L Total Protein 7.5 (6.3-8.2) g/dL Albumin 4.6 (3.5-5.0) g/dL HCG, Quant 7881.5 mIU/mL Urine Color Colorless Urine Appearance Clear (Clear) Urine pH 6.0 (5.0-8.0) Ur Specific [place] 1.005 (1.001-1.035) Urine Protein Negative (Negative) Urine Glucose (UA) Negative (Negative) Urine Ketones Negative (Negative) Urine Blood Small H (Negative) Urine Nitrite Negative (Negative) Urine Bilirubin Negative (Negative) Urine Urobilinogen <2.0 (<2.0) mg/dL Ur Leukocyte Esterase Negative (Negative) Urine RBC <1 (0-5) /hpf Urine WBC 1 (0-5) /hpf Ur Squamous Epith Cells 1 (0-4) /hpf Urine Bacteria Occasional H (None) /hpf Blood Type Blood Type Recheck Bld Type Recheck Status Antibody Screen 10/25/23 Range/Units 16:34 WBC (3.8-10.6) k/uL RBC (3.80-5.40) m/uL Hgb (11.4-16.0) gm/dL Hct (34.0-46.0) % MCV (80.0-100.0) fL MCH (25.0-35.0) pg MCHC (31.0-37.0) g/dL RDW (11.5-15.5) % Plt Count (150-450) k/uL MPV Neutrophils % % Lymphocytes % % Monocytes % % Eosinophils % % Basophils % % Neutrophils # (1.3-7.7) k/uL Lymphocytes # (1.0-4.8) k/uL Monocytes # (0-1.0) k/uL Eosinophils # (0-0.7) k/uL Basophils # (0-0.2) k/uL Sodium (137-145) mmol/L Potassium (3.5-5.1) mmol/L Chloride (98-107) mmol/L Carbon Dioxide (22-30) mmol/L Anion Gap mmol/L BUN (7-17) mg/dL Creatinine (0.52-1.04) mg/dL Est GFR (CKD-EPI)AfAm (>60 ml/min/1.73 sqM) Est GFR (CKD-EPI)NonAf (>60 ml/min/1.73 sqM) Glucose (74-99) mg/dL Calcium (8.4-10.2) mg/dL Total Bilirubin (0.2-1.3) mg/dL AST (14-36) U/L ALT (4-34) U/L Alkaline Phosphatase (38-126) U/L Total Protein (6.3-8.2) g/dL Albumin (3.5-5.0) g/dL HCG, Quant mIU/mL Urine Color Urine Appearance (Clear) Urine pH (5.0-8.0) Ur Specific [place] (1.001-1.035) Urine Protein (Negative) Urine Glucose (UA) (Negative) Urine Ketones (Negative) Urine Blood (Negative) Urine Nitrite (Negative) Urine Bilirubin (Negative) Urine Urobilinogen (<2.0) mg/dL Ur Leukocyte Esterase (Negative) Urine RBC (0-5) /hpf Urine WBC (0-5) /hpf Ur Squamous Epith Cells (0-4) /hpf Urine Bacteria (None) /hpf Blood Type O Negative Blood Type Recheck O Neg Bld Type Recheck Status No Antibody Screen NEGATIVE Disposition <Shanti Sharp - Last Filed: 10/25/23 14:55> Is patient prescribed a controlled substance at d/c from ED?: No Time of Disposition: 17:35 <Cindy Polo - Last Filed: 10/25/23 23:07> Clinical Impression: Rh negative status during , Vaginal bleeding during Disposition: HOME SELF-CARE Condition: Stable Additional Instructions: Please follow-up with [facility] in the next 1 to 2 days. Return to the ER for any new or worsening symptoms. Referrals: None,Stated [Primary Care Provider] - 1-2 days Brenden Rene MD [STAFF PHYSICIAN] - 1-2 days
[2023-10-25 15:07] VITALS: BP 154/80; PULSE 106; RESP 18; TEMP 98.7
[2023-10-25 15:22] LABS: Appearance,Urine Clear (Clear); Bacteria,Urine Occasional /hpf; Bilirubin,Urine Negative (Negative); Blood,Urine Small (Negative); Color,Urine Colorless; Glucose,Urine (UA) Negative (Negative); Ketones,Urine Negative (Negative); Leukocyte Esterase,Urine Negative (Negative); Nitrite,Urine Negative (Negative); Protein,Urine Negative (Negative); RBC,Urine <1 /hpf (0-5); Specific Gravity,Urine 1.005 (1.001-1.035); Squamous Epithelial Cell,Urine 1 /hpf (0-4); Urobilinogen,Urine <2.0 mg/dL (<2.0); WBC,Urine 1 /hpf (0-5)
--- NOTE | 2023-10-25 16:02 | US ---
EXAMINATION TYPE: Transabdominal DATE OF EXAM: 10/25/2023 3:26 PM COMPARISON: NONE CLINICAL INDICATION: Female, 23 years old with history of Vaginal bleeding and pelvic pain in pregnan cy; Left pelvic pain and bleeding x 1 day EXAM PERFORMED: Transvaginal (TV) and Transabdominal (TA) EXAM MEASUREMENTS: GESTATIONAL AGE / DATING Physician Established: Not yet established Dates by LMP: (7 weeks/2 days) EDC: 06/10/2024 Dates by First Scan: No previous this is first scan Dates by Current Scan for: By gestational sac (5 weeks/0 days) EDC: 06/26/2024 MATERNAL ANATOMY Uterus: 9.7 x 5.4 x 5.4cm Right Ovary: not seen due to overlying bowel gas Left Ovary: 5.3 x 1.2 x 2.1cm Post CDS / Adnexa: small amount of free fluid posterior cul-de-sac Presence of free fluid: yes Presence of corpus luteal cyst: left ovary - 2.0 x 1.2 x 2.0cm Presence of subchorionic bleed: no GESTATION / SURVEY MSD: 1.0cm (5 weeks/0 days) Yolk Sac (normal less than 6mm): 2.1mm IUP: No pole seen at this time Date of LMP: 09/04/2023 Beta HcG (if available): Not available at time of exam IMPRESSION: Small anechoic intrauterine cystic structure without evidence for yolk sac or pole at this time . This is thought to represent an early gestational sac with a positive beta hCG, however ectopic pre gnancy and abnormal intrauterine cannot be ruled out based on this exam alone. Follow-up [facility] pelvic ultrasound in 7-10 days and serial beta-hCG studies are recommended to en sure further deve lopment of the fetus.
[2023-10-25 16:44] LABS: Basophils # (A) 0.1 k/uL (0-0.2); Basophils % (A) 1 %; Eosinophils # (A) 0.1 k/uL (0-0.7); Eosinophils % (A) 1 %; HCT 43.3 % (34.0-46.0); HGB 14.6 gm/dL (11.4-16.0); Lymphocytes # (A) 2.3 k/uL (1.0-4.8); Lymphocytes % (A) 26 %; MCH 29.5 pg (25.0-35.0); MCHC 33.8 g/dL (31.0-37.0); MCV 87.4 fL (80.0-100.0); Mean Platelet Volume 9.1; Monocytes # (A) 0.4 k/uL (0-1.0); Monocytes % (A) 4 %; Neutrophils % (A) 67 %; Platelet Count 182 k/uL (150-450); RBC 4.95 m/uL (3.80-5.40); RDW 12.7 % (11.5-15.5); WBC 8.9 k/uL (3.8-10.6)
[2023-10-25 16:58] LABS: ALT 16 U/L (4-34); AST 23 U/L (14-36); African American GFR (CKD) >90 (>60 ml/min/1.73 sqM); Albumin 4.6 g/dL (3.5-5.0); Alkaline Phosphatase 77 U/L (38-126); Anion Gap 10 mmol/L; Blood Urea Nitrogen 10 mg/dL (7-17); Calcium 9.8 mg/dL (8.4-10.2); Carbon Dioxide 21 mmol/L (22-30); Chloride 108 mmol/L (98-107); Glucose 93 mg/dL (74-99); Non-African American GFR(CKD) >90 (>60 ml/min/1.73 sqM); Potassium 3.8 mmol/L (3.5-5.1); Sodium 139 mmol/L (137-145); Total Bilirubin 0.5 mg/dL (0.2-1.3); Total Protein 7.5 g/dL (6.3-8.2)
[2023-10-25 17:15] LABS: HCG,Quantitative Serum 7881.5 mIU/mL
[2023-10-25] MEDS: Rhogam IMMUNE GLOBULIN 1,500 UNIT/1 ML IM ONE (18:35)
== END 2023-10-25 18:46 | disposition home or self-care (01) ==
LOC: EC 14:36
DX: O20.9 Hemorrhage in early pregnancy, unspecified (principal); O99.511 Diseases of the respiratory system complicating pregnancy, first trimester; J45.909 Unspecified asthma, uncomplicated; O99.611 Diseases of the digestive system complicating pregnancy, first trimester; K21.9 Gastro-esophageal reflux disease without esophagitis; Z79.899 Other long term (current) drug therapy; Z3A.01 Less than 8 weeks gestation of pregnancy; Z91.09 Other allergy status, other than to drugs and biological substances
CPT/HCPCS: 99284; 96372; 36415; 86900; 86901; 80053; 85025; 86850; 81001; 84702; 76801; 76817; J2790

== ENCOUNTER 2024-08-04 05:51 | Inpatient (IN) | payer OTHER ==
[2024-08-04] MEDS ORDERED: CARBOPROST TROMETHAMINE 250 MCG/ML 1 ML AMP IM PRN (06:27)
[2024-08-04] MEDS ORDERED: TERBUTALINE 1 MG/ML VIAL SQ PRN (06:27)
[2024-08-04] MEDS ORDERED: TRANEXAMIC 1,000 MG/100ML-NACL 1,000 MG in EMPTY BAG 1 BAG IV PRN (06:27)
[2024-08-04] MEDS ORDERED: LIDOCAINE 0.5% (PF) 5 MG/ML (50 ML SDV) SQ PRN (06:27)
[2024-08-04] MEDS ORDERED: OXYTOCIN 10 UNIT/ML 1 ML VIAL IM PRN (06:27)
[2024-08-04] MEDS ORDERED: miSOPROStoL 200 MCG TAB RECTAL PRN (06:27)
[2024-08-04] MEDS ORDERED: miSOPROStoL 200 MCG TAB PO PRN (06:27)
[2024-08-04] MEDS ORDERED: METHYLERGONOVINE 0.2 MG/ML 1 ML AMP IM PRN (06:27)
[2024-08-04] MEDS: LACTATED RINGERS 1,000 ML IV SCH (06:47)
[2024-08-04] MEDS: OXYTOCIN 30 UNITS/500 ML NS 30 UNIT in SALINE 1 500ML.BAG IV SCH (06:48)
[2024-08-04 07:23] LABS: Basophils % (A) 0 %; Eosinophils % (A) 0 %; HGB 10.3 gm/dL (11.4-16.0); Hypochromasia Slight; Lymphocytes % (A) 30 %; MCH 23.4 pg (25.0-35.0); MCHC 32.1 g/dL (31.0-37.0); MCV 72.9 fL (80.0-100.0); Mean Platelet Volume 11.1; Microcytosis Slight; Monocytes # (A) 0.4 k/uL (0-1.0); Monocytes % (A) 6 %; Neutrophils # (A) 4.2 k/uL (1.3-7.7); Neutrophils % (A) 62 %; Platelet Count 176 k/uL (150-450); Poikilocytosis Slight; RBC 4.39 m/uL (3.80-5.40); RDW 14.9 % (11.5-15.5); WBC 6.8 k/uL (3.8-10.6)
[2024-08-04] MEDS ORDERED: BUTORPHANOL 1 MG/ML 1 ML VIAL IV PRN (08:50)
--- NOTE | 2024-08-04 08:54 | P.HPOB ---
History of Present Illness H&P Date: 08/04/24 Chief Complaint: 39-0/7 weeks, induction The patient is a 24-year-old 5 para 3-0-1-3 admitted at 39-0/7 weeks as established by a 7-week ultrasound. She is admitted for elective induction of labor with all signs reassuring, category 1 heart rate tracing. Her has been essentially entirely uncomplicated. She is known to be Rh- and received RhoGAM at 28 weeks. She additionally had a circumvallate placenta noted and has had weekly testing since 32 weeks which has been reassuring. Group B strep status is negative. Obstetrical history: 5 para 3-0-1-3 with 3 term vaginal deliveries without complications. Current statistics are listed in history of present illness. EDC of 08/11/2024 was established by 7-week ultrasound. Laboratory workup demonstrates a blood type of O- with a negative antibody screen. Rubella status is immune. The remainder of the laboratory workup was within normal limits. 1 hour Glucola was normal and group B strep status is negative. Gynecologic history: Unremarkable with no history of any infections to include STDs. Review of Systems Review of systems is confined to history of present illness. Past Medical History Past Medical History: Asthma, GERD/Reflux History of Any Multi-Drug Resistant Organisms: None Reported Past Surgical History: No Surgical Hx Reported Additional Past Surgical History / Comment(s): third molar removal Past Anesthesia/Blood Transfusion Reactions: No Reported Reaction Past Psychological History: Anxiety, Depression Smoking Status: Never smoker Past Alcohol Use History: None Reported Past Drug Use History: None Reported - Past Family History Father Family Medical History: Hypertension Medications and Allergies Home Medications Medication Instructions Recorded Confirmed Type Omeprazole 40 mg PO DAILY 02/23/22 02/23/22 History Allergies Allergy/AdvReac Type Severity Reaction Status Date / Time adhesive tape Allergy Rash/Hives Verified 10/25/23 14:52 Exam Vital Signs Temp Pulse Resp BP Pulse Ox 08/04/24 06:05 97.1 F L 99 16 144/64 99 Intake and Output 08/03/24 08/04/24 08/04/24 22:59 06:59 14:59 Other: Weight 80.739 kg In general, this is a well-developed, well-nourished white female in no acute distress. Her heart has a regular rhythm and rate without murmur. Her lungs are clear to auscultation bilateral in all abernathy. Her abdomen is gravid, nondistended, has normal active bowel sounds, soft, nontender, and without any palpable masses aside from uterine fundus. Her extremities are without any cyanosis, clubbing, or significant edema and are nontender to palpation bilaterally. Digital cervical examination demonstrates her cervix to be 2 cm dilated, 50% effaced, with a vertex and presentation at -2 station. Artificial rupture of membranes is carried out demonstrating clear fluid. Results Result Diagrams: 08/04/24 06:35 Abnormal Lab Results - Last 24 Hours (Table) 08/04/24 Range/Units 06:35 Hgb 10.3 L (11.4-16.0) gm/dL Hct 32.0 L (34.0-46.0) % MCV 72.9 L (80.0-100.0) fL MCH 23.4 L (25.0-35.0) pg Assessment and Plan (1) Term Current Visit: Yes Status: Acute Code(s): Z34.90 - ENCNTR FOR SUPRVSN OF NORMAL , UNSP, UNSP TRIMESTER SNOMED Code(s): 97159288 Plan: The patient has been admitted for elective induction of labor with all signs reassuring. Pitocin augmentation has been started and she has undergone artificial rupture of membranes. She will have close maternal and surveillance and expectant management will be practiced. She is a good candidate for either IV or epidural analgesia, whichever she may choose.
[2024-08-04] MEDS ORDERED: SODIUM CHLORIDE 0.9% 250 ML BAG ONE (09:45)
[2024-08-04] MEDS ORDERED: fentaNYL (PF) 50 MCG/ML 5 ML AMP ONE (09:45)
[2024-08-04] MEDS ORDERED: ROPIVACAINE 5 MG/ML 30 ML VIAL ONE (09:45)
[2024-08-04] MEDS ORDERED: SIMETHICONE 80 MG CHEWABLE PO PRN (14:31)
[2024-08-04] MEDS ORDERED: LANOLIN CREAM 1 GM TUBE TOPICAL PRN (14:31)
[2024-08-04] MEDS ORDERED: ZOLPIDEM 5 MG TAB PO PRN (14:31)
[2024-08-04] MEDS ORDERED: diphenhydrAMINE 25 MG CAP PO PRN (14:31)
[2024-08-04] MEDS ORDERED: diphenhydrAMINE 50 MG/ML 1 ML VIAL IVP PRN ×2 (14:31)
[2024-08-04] MEDS ORDERED: diphenhydrAMINE 50 MG CAP PO PRN (14:31)
[2024-08-04] MEDS ORDERED: HYDROCORTISONE 2.5% RECTAL CREAM 30 GM TUBE RECTAL PRN (14:31)
--- NOTE | 2024-08-04 14:35 | P.PROBDLV ---
Vaginal Delivery Note - . Vaginal Delivery Note: The patient is a 24-year-old 5 para 3-0-1-3 admitted at 39-0/7 weeks by good dating parameters. She is admitted for induction of labor in an elective fashion with all signs reassuring, category 1 heart rate tracing. Her has been essentially uncomplicated though she was found with a circumvallate placenta and had weekly reassuring testing beginning at 32 weeks. On labor and delivery, she had Pitocin started followed by artificial rupture of membranes. She made progress to approximately 3 cm at which time an epidural catheter was placed for analgesia. She progressed fairly quickly through the active phase of labor and ultimately became complete. She pushed over the course of 1 contraction to a normal spontaneous vaginal delivery of a viable 7 pound 7.8 ounce baby girl with Apgars of 9 at 1 minute and 9 at 5 minutes delivered in the right occiput anterior position. The placenta was delivered spontaneously, intact, and grossly normal though there was a circumvallate rim noted. There was a grossly normal three-vessel cord inserted approximately 5 to 6 cm from the margin of the placental disc. There were no lacerations of the perineum, vagina, or cervix. Estimated blood loss for the case was approximately 250 mL. There were no complications. All sponge, instrument, and needle counts were correct. Both mother and infant are resting comfortably in recovery.
[2024-08-04] MEDS: IBUPROFEN 800 MG TAB PO PRN (15:02)
[2024-08-04] MEDS: BENZOCAINE/MENTHOL SPRAY 1 GM/SPRAY AEROSOL TOPICAL PRN (15:03)
[2024-08-04] MEDS: SENNOSIDES-DOCUSATE SODIUM 1 EACH TAB PO SCH (20:30)
[2024-08-04] MEDS: ACETAMINOPHEN TAB 500 MG TAB PO PRN (20:34)
[2024-08-05 01:54] VITALS: PULSE 70
[2024-08-05 05:39] LABS: Basophils % (A) 0 %; Eosinophils # (A) 0.1 k/uL (0-0.7); Eosinophils % (A) 1 %; HCT 26.9 % (34.0-46.0); Hypochromasia Moderate; Lymphocytes # (A) 2.2 k/uL (1.0-4.8); Lymphocytes % (A) 29 %; MCH 24.3 pg (25.0-35.0); MCHC 32.8 g/dL (31.0-37.0); MCV 74.1 fL (80.0-100.0); Mean Platelet Volume 12.1; Microcytosis Slight; Monocytes # (A) 0.5 k/uL (0-1.0); Monocytes % (A) 6 %; Neutrophils # (A) 4.8 k/uL (1.3-7.7); Neutrophils % (A) 62 %; Platelet Count 143 k/uL (150-450); Poikilocytosis Slight; RBC 3.63 m/uL (3.80-5.40); RDW 15.1 % (11.5-15.5); WBC 7.8 k/uL (3.8-10.6)
[2024-08-05 05:41] LABS: HGB 8.8 gm/dL (11.4-16.0)
[2024-08-05 08:46] VITALS: BP 123/70; RESP 16; TEMP 98.3
--- NOTE | 2024-08-05 08:49 | P.DS ---
Providers Date of admission: 08/04/24 05:51 Expected date of discharge: 08/05/24 Attending physician: Brenden Rene Primary care physician: Stated None - Discharge Diagnosis(es) (1) Term Current Visit: Yes Status: Acute (2) Normal spontaneous vaginal delivery Current Visit: Yes Status: Acute Hospital Course: The patient is a 24-year-old 5 para 3-0-1-3 admitted at 39-0/7 weeks by good dating parameters. She is admitted for elective induction with a category 1 heart rate tracing. Her was uncomplicated though she did have a circumvallate placenta and had reassuring weekly testing after 32 weeks. She additionally was Rh- and received RhoGAM at 28 weeks. Group B strep status is negative. On labor and delivery, she had Pitocin started and underwent artificial rupture of membranes for clear fluid. She shortly thereafter had an epidural catheter placed for analgesia. She made fairly quick progress through the active phase of labor to complete and pushed to a normal spontaneous vaginal delivery of a viable 7 pound 7.8 ounce baby girl with Apgars of 9 at 1 minute and 9 at 5 minutes. Her course was unremarkable with vital signs remaining stable and her temperature was afebrile throughout. She was deemed stable for discharge on day #1 was discharged home to follow-up in the office in 6 weeks time routinely. Discharge instructions included calling for any significantly increased bleeding or foul-smelling lochia, significantly increased fever abdominal pain, perineal complaints, breast complaints, or anything else that concerned her. She was additionally instructed to have nothing in the vagina for at least 6 weeks time to include intercourse. She understood her instructions and agrees to follow-up as noted above. Discharge medications included [id number] analgesic pain medications as well as continued vitamins as she has opted to breast- feed. Maternal blood type is O- and cord blood was sent for evaluation for the necessity of RhoGAM prior to discharge. Rubella status is immune. Procedures: 1. Pitocin induction #2. Artificial rupture of membranes #3. Epidural analgesia #4. Normal spontaneous vaginal delivery Plan - Discharge Summary New Discharge Prescriptions: No Action Omeprazole 40 mg PO DAILY Discharge Medication List Omeprazole 40 mg PO DAILY 02/23/22 [History] Follow up Appointment(s)/Referral(s): Brenden Rene MD [STAFF PHYSICIAN] - 09/15/24 1:15 pm Discharge Disposition: HOME SELF-CARE
[2024-08-05] MEDS: Rhogam IMMUNE GLOBULIN 1,500 UNIT/1 ML IM ONE (10:34)
== END 2024-08-05 15:00 | disposition home or self-care (01) | DRG 807 ==
LOC: 4FBP 05:51
PROVIDERS: ADMIT Obstetrics & Gynecology; ATTEND Obstetrics & Gynecology
PROC: 10E0XZZ Delivery of Products of Conception, External Approach (ICD-10-PCS; principal; 2024-08-04)
PROC: 3E033VJ Introduction of Other Hormone into Peripheral Vein, Percutaneous Approach (ICD-10-PCS; 2024-08-04)
PROC: 10907ZC Drainage of Amniotic Fluid, Therapeutic from Products of Conception, Via Natural or Artificial Opening (ICD-10-PCS; 2024-08-04)
PROC: 3E0234Z Introduction of Serum, Toxoid and Vaccine into Muscle, Percutaneous Approach (ICD-10-PCS; 2024-08-04)
DX: O26.893 Other specified pregnancy related conditions, third trimester (principal); Z37.0 Single live birth; F32.A Depression, unspecified; F41.9 Anxiety disorder, unspecified; J45.909 Unspecified asthma, uncomplicated; O99.344 Other mental disorders complicating childbirth; O99.52 Diseases of the respiratory system complicating childbirth; Z3A.39 39 weeks gestation of pregnancy; Z82.49 Family history of ischemic heart disease and other diseases of the circulatory system; Z91.048 Other nonmedicinal substance allergy status; Z67.41 Type O blood, Rh negative
CPT/HCPCS: 85025; 85461; 86850; 86900; 86901